=== PATIENT | male | born 1960 | race Caucasian/White ===

== ENCOUNTER 2017-04-07 09:03 | Observation (INO) ==
[2017-04-07] MEDS ORDERED: methylPREDNISolone 125 MG/2 ML VIAL IVP ONE (09:13)
[2017-04-07] MEDS ORDERED: Famotidine 20 MG/2 ML VIAL IVP ONE (09:14)
--- NOTE | 2017-04-07 09:17 | Emergency Department Note ---
Disposition Clinical Impression: Angioedema Qualifiers: Encounter type: initial encounter Qualified Code(s): T78.3XXA - Angioneurotic edema, initial encounter Disposition: Admitted As Inpatient Condition: Good Referrals: Nima Ross MD [Primary Care Provider] - Forms: ED Satisfaction Letter Time of Disposition: 10:08 General Adult HPI - General Chief complaint: ED Upper Respiratory Infection Stated complaint: Uvula Swollen Time Seen by Provider: 04/07/17 09:11 Source: patient Mode of arrival: ambulatory Limitations: no limitations Nursing Notes Reviewed: Yes Vital Signs Reviewed: Yes - History of Present Illness HPI Narrative: 56-year-old who states he woke up with a swollen uvula this morning. Patient states felt fine last PM. Patient is able to breathe without difficulty denies lip swelling or tongue swelling. Patient is on lisinopril. 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 Constitutional: Denies: fever, chills, weakness, weight change Eyes: Denies: eye pain, eye discharge, vision change ENT ED: Reports: throat pain, other (Swollen uvula). Denies: ear pain, dental pain, hearing loss, epistaxis, congestion, dysphagia Cardiovascular: Denies: chest pain, palpitations, dyspnea on exertion, edema, syncope Respiratory: Denies: cough, dyspnea, wheezes, hemoptysis, stridor Gastrointestinal: Denies: abdominal pain, nausea, vomiting, diarrhea, constipation, hematemesis, melena, hematochezia Genitourinary: Denies: urgency, dysuria, frequency, hematuria Musculoskeletal: Denies: back pain, neck pain, arthralgia, myalgia Integumentary: Denies: rash, abrasion, lesions Neurological: Denies: headache, weakness, numbness, paresthesias, confusion, abnormal gait, vertigo Psychiatric: Denies: anxiety, depression, suicidal thoughts, homicidal thoughts , auditory hallucinations, visual hallucinations Endocrine: Denies: fatigue Hematological/Lymphatic: Denies: easy bleeding, easy bruising Allergic/Immunologic: Denies: facial swelling, urticaria Past Medical History - Past Medical History Medical history: Reports: other Psychiatric history: Reports: no psych history - Social History Smoking Status: Never smoker Smokeless Tobacco Status: No Alcohol use: Reports: rarely Drug use: Reports: none Physical Exam - General Limitations: no limitations General appearance: alert, in no apparent distress - Head Head exam: atraumatic, normocephalic, normal inspection - Eye Eye exam: Present: normal appearance, PERRL, EOMI - ENT ENT exam: normal exam, normal oropharynx, mucous membranes moist - Neck Neck exam: Present: normal inspection, full ROM, trachea midline, other ( Edematous uvula otherwise airway appears patent) - Chest Chest inspection: Present: normal inspection, symmetric chest wall rise - Respiratory Respiratory exam: Present: normal lung sounds bilaterally - Cardiovascular Cardiovascular exam: Present: regular rate, normal rhythm, normal heart sounds - Abdominal Exam Abdominal exam: Present: soft, Non-Tender. Absent: tenderness, distention, guarding, rebound, rigidity - Extremities Exam Extremities exam: Present: normal inspection, full ROM. Absent: tenderness, pedal edema - Expanded Lower Extremity Exam Neurovascular/Tendon exam: Absent: motor deficit, sensory deficit, tendon deficit Gait: observed and normal - Back Exam Back exam: Present: normal inspection, full ROM. Absent: tenderness - Neurological Exam Neurological exam: Present: alert, oriented X3 - Psychiatric Psychiatric exam: Present: normal affect, normal mood - Skin Skin exam: Present: warm, dry, intact, normal color Course - Reevaluation(s) Reevaluation #1: States may have had some improvement. Time: 09:38 Reevaluation #2: Feels better although continues to have swelling of the uvula. Time: 10:01 - Consultations Consultation #1: Discussed with pharmacy I[facility]ib[facility], ecallantide are not available. Time: 09:39 Consultation #2: Discussed with Dr. Cervantes, admit if ENT is available. Time: 10:07 Consultation #3: Discussed with Dr. Salcedo, all see the patient in consult and will be available for any airway needs. Time: 10:16 Vital Signs Temperature 98.8 F 04/07/17 09:06 Pulse Rate 100 04/07/17 09:06 Respiratory Rate 16 04/07/17 09:06 Blood Pressure 149/94 04/07/17 09:06 O2 Sat by Pulse Oximetry 92 04/07/17 09:06 Temperature 98.8 F 04/07/17 09:06 Pulse Rate 100 04/07/17 09:06 Respiratory Rate 16 04/07/17 09:06 Blood Pressure 149/94 04/07/17 09:06 O2 Sat by Pulse Oximetry 92 04/07/17 09:06 Oxygen Delivery Oxygen Delivery Room Air
[2017-04-07] MEDS ORDERED: *HR* LORazepam 2 MG/ML VIAL IVP ONE (10:02)
[2017-04-07] MEDS ORDERED: Ondansetron 4 MG/2 ML VIAL IVP PRN (10:15)
[2017-04-07] MEDS ORDERED: Naloxone 0.4 MG/ML INJ IVP PRN (10:15)
[2017-04-07 10:31] LABS: Basophils # 0.1 K/mcL (0.0-0.2); Basophils % 0.9 %; Eosinophils # 0.2 K/mcL (0.0-0.6); Eosinophils % 3.3 %; Hematocrit 44.8 % (37.5-50.1); Hemoglobin 14.7 g/dL (12.9-16.9); Immature Granulocytes % 0.5 % (0-4); Lymphocytes # 1.5 K/mcL (0.6-4.6); Lymphocytes % 26.2 %; Mean Corpuscular HGB Conc 32.8 g/dL (31.6-35.5); Mean Corpuscular Hemoglobin 27.2 pg (28.0-33.3); Mean Platelet Volume 9.9 fL (9.4-12.4); Monocytes # 0.4 K/mcL (0.0-1.3); Monocytes % 6.9 %; Neutrophils # 3.6 K/mcL (1.6-8.9); Platelet Count 189 K/mcL (140-400); Red Cell Distribution Width 14.6 % (11.5-14.5); Segmented Neutrophils % 62.2 %
[2017-04-07 10:43] LABS: BUN/Creatinine Ratio 16 (6-26); Blood Urea Nitrogen 19 mg/dL (8-26); Calcium 9.5 mg/dL (8.6-10.8); Carbon Dioxide 25 mEq/L (19-29); Chloride 104 mEq/L (98-109); Glucose 124 mg/dL (70-99); Osmolality,Calculated 292 (280-300); Potassium 3.8 mEq/L (3.5-4.5); Sodium 139 mEq/L (136-145); eGFR For African Americans > 60 (> 60); eGFR For Non-African Americans > 60 (> 60)
[2017-04-07] MEDS ORDERED: SUMAtriptan succinate 50 MG TABLET PO PRN (10:45)
--- NOTE | 2017-04-07 10:51 | Internal Med History&Physical ---
Date of Encounter: 04/08/17 Time of Encounter: 10:49 Assessment and Plan (1) Angioedema Current visit: Yes Status: Suspected Acute uvulitis, presents with no URI type symptoms. Reports a mildly sore throat, No lip or tongue swelling, no tonsillomegaly, in no respiratory distress at this time. Per x-ray no airway occlusion. Hemodynamically stable and NSR. Patient has history of hypertension and has been on lisinopril greater than 10 years. I suspect Angioedema related to lisinopril use, but uvulitis due to GAS also in the differential. The patient is resting comfortably in no respiratory distress, sats 98% on room air with normal sinus rhythm Rapid strep A swab to rule out GAS Benadryl 25 mg IV push every 8 hours scheduled Famotidine 20 mg twice a day IV push Solu-Medrol 40 mg IV push every 6 hours Continuous telemetry, continuous SPO2 monitoring Respiratory support as needed Consult to ENT-called by ED physician Qualifiers: Encounter type: initial encounter Qualified Code(s): T78.3XXA - Angioneurotic edema, initial encounter (2) Uvulitis Current visit: Yes Status: Acute See plan above Internal Medicine - H&P: HPI Chief complaint: Uvulitis Admitted From: Home Plans for Post Hospital Care: Home History of present illness: Mr. Benoit is a 56 year old male presents to [facility] today for uvulitis. He states that he woke this morning with swollen uvula and a mild sore throat. Patient states that he felt fine last night before going to bed. The patient takes lisinopril for hypertension and has been on this medication for 10 years. CBC and CMP unremarkable no eosinophilia noted. He denies any tongue or lip swelling and is not in any rest or distress. Patient denies any fever, fatigue, swollen lymph nodes or flulike symptoms. Past Med Surg Social Fam HX - Past Medical History Medical history: other Psychiatric history: no psych history - Social History Smoking Status: Never smoker Smokeless Tobacco Status: No Alcohol use: rarely Drug use: none - Additional Family History Additional family history: Noncontributory Internal Medicine - H&P: Meds Benztropine [Cogentin] 1 mg PO HS 04/07/17 [History] BuPROPion SR (12 HR) [Wellbutrin SR] 150 mg PO DAILY 04/07/17 [History] Cholecalciferol (D-3) [Vitamin D] 5,000 unit PO DAILY 04/07/17 [History] Fenofibrate Nanocrystallized [Triglide] 160 mg PO DAILY 04/07/17 [History] Fluticasone Propionate Nasal [Flonase] 50 mcg NS BID 04/07/17 [History] Gabapentin [Neurontin] 300 mg PO HS 04/07/17 [History] Lisinopril/Hydrochlorothiazide [Zestoretic 10-12.5 mg Tablet] 1 tab PO DAILY 09/18 [History] [place]-3/Dha/Epa/Fish Oil [Fish Oil 1,000 mg Softgel] 1,000 mg PO BID 04/07/17 [ History] Omeprazole [PriLOSEC] 20 mg PO DAILY 04/07/17 [History] Perphenazine [Perphenazine] 16 mg PO HS 04/07/17 [History] SUMAtriptan Succinate [Imitrex] 100 mg PO AD PRN 04/07/17 [History] Tamsulosin [Flomax] 0.4 mg PO DAILY 04/07/17 [History] Venlafaxine [Effexor] 25 mg PO DAILY 04/07/17 [History] Vitamin E Acid Succinate [Vitamin E] 400 units PO DAILY 04/07/17 [History] 3 Allergy/AdvReac Type Severity Reaction Status Date / Time hydrochlorothiazide AdvReac Swelling Verified 04/07/17 10:39 [From Zestoretic] of Lip/Tongue/Throat lisinopril [From Zestoretic] AdvReac Swelling Verified 04/07/17 10:39 of Lip/Tongue/Throat All Systems PM: A 10-system review of systems was performed and is negative for pertinent findings except as documented above in the HPI. - Constitutional Constitutional: no chills, no fatigue, no fever(s), no lethargy, no night sweats , no weakness - EENT Eyes: no change in vision, no discharge, no pain, no photophobia Ears: no ear discharge, no ear pain, no tinnitus Nose, mouth and throat: dry mouth, sore throat (Mild), no bleeding gums, no change in voice, no dysphagia, no epistaxis, no hoarseness, no lip swelling, no mouth lesions, no mouth pain, no nasal congestion, no nasal discharge, no nasal obstruction, no neck mass, no neck pain, no nose pain, no post-nasal drip, no sinus pain, no sinus pressure, no throat swelling, no tongue swelling - Cardiovascular Cardiovascular ROS IM: no chest pain, no diaphoresis, no dyspnea, no edema, no lightheadedness, no palpitations, no syncope - Respiratory Respiratory: no cough, no dyspnea, no wheezing, no excessive phlegm production - Gastrointestinal Gastrointestinal: no abdominal pain, no diarrhea, no hematemesis, no hematochezia, no melena, no nausea, no vomiting - Musculoskeletal Musculoskeletal ROS IM: no numbness, no tingling - Integumentary Integumentary IM: no rash, no unusual bruising - Neurological Neurological ROS: no confusion, no convulsions, no focal weakness, no numbness, no tingling, no tremor(s) - Hematologic/Lymphatic Hematologic/Lymphatic: no easy bruising - Constitutional Vitals: Temp Pulse Resp BP Pulse Ox 98.8 F 92 16 150/97 96 04/07/17 09:06 04/07/17 10:34 04/07/17 10:34 04/07/17 10:34 04/07/17 10:34 General appearance: Present: cooperative, A&O X 3, no acute distress, answers questions appropriately - Head Head exam: Present: atraumatic, normocephalic - Eye Eye exam: Present: EOMI, PERRL, conjuntiva pink, sclera anicteric Pupils: Present: PERRL - ENT ENT exam: Present: mucous membranes dry - Expanded ENT Exam Mouth exam: Present: dry mucosa, tongue normal. Absent: drooling, muffled voice , tongue elevation, tongue hypertrophy Throat exam: Present: post pharyngeal erythema (Mild). Absent: post pharyngeal edema, tonsillar erythema, tonsillar exudate, tonsillomegaly - Neck Neck exam general surgery: Present: supple, trachea midline. Absent: lymphadenopathy - Respiratory Respiratory exam: Present: CTAB. Absent: accessory muscle use, rales, rhonchi, wheezes - Cardiovascular Cardiovascular exam: Present: RRR, +S1, +S2. Absent: diastolic murmur, gallop, rubs, systolic murmur - GI/Abdominal GI/Abdominal exam: Present: normal bowel sounds, soft, no peritoneal signs. Absent: distended, tenderness - Extremities Exam Extremities exam: Present: warm, radial pulses palpable and symmetrical. Absent : calf tenderness, cyanotic, pedal edema - Neurological Exam Neurological exam: Present: CN II-XII intact, oriented X3, no focal deficits. Absent: pronater drift, facial droop, speech deficit - Skin Skin exam: Present: dry, intact Internal Med - H&P Results - Labs CBC & Chem 7: 04/07/17 10:24 04/07/17 10:24 - Diagnostic Studies Other Images Status: image reviewed by me Additional comments: Soft tissue of the neck reveals prominent adenoids with patent airway
[2017-04-07] MEDS ORDERED: MethylPREDNISolone 40 MG/ML VIAL IVP SCH (12:00)
--- NOTE | 2017-04-07 12:13 | Event Note ---
Date of Encounter: 04/07/17 Time of Encounter: 12:12 Patient seen and examined with nurse practitioner. Angioedema likely induced by lisinopril. Advised the patient to discontinue lisinopril completely. Will give IV steroids H1, H2 blockers. ENT was consulted. For code
--- NOTE | 2017-04-07 12:22 | ENT - Consult Note ---
Date of Encounter: 04/07/17 Time of Encounter: 12:20 Assessment and Plan (1) Uvulitis Current Visit: Yes Status: Acute I had a nice discussion with the patient about the etiology of the solitary uvula swelling. I think it is likely given his presumed severe obstructive sleep apnea that his baseline uvula/soft palate complex is long and patulous on top of adult tonsil hyperplasia. That said I think it safest to assume that this an RADHA inhibitor related angioedema and therefore avoidance of this class of antihypertensives now and in the future seems prudent. Additional etiology of the swelling could include irritation from the high pressure BiPAP and/or early viral URI. I recommend either IV decadron 10mg q 8h for 3 doses or IV solumedrol 80-100mg q8h for 3doses. He can be discharged on a tapering course of prednisone such as 40mg x 3 days, then 20mg x 3 days then 10mg for 3 days. No lisinopril in the future and no BiPAP for tonight and tomorrow night. He may benefit from an ENT clinic consultation for the sleep apnea but I recommended he discuss this with his sleep physician first. History of Present Illness Consult date: 04/07/17 Reason for ENT Consult: other (uvula edema) History of present illness: 56 yo male woke up with a slightly scratchy throat this morning and a sense of swelling in the uvula region. He denies other viral URI symptoms. His medications include lisinopril and he also uses BiPAP nightly with a full face mask and high pressure setting. He received IV steroids in the ED and feels slightly better. He is easily drinking liquids at the bedside. There is no prior history of similar problem. Past Med Surg Social Fam HX - Past Medical History Medical history: other Psychiatric history: schizophrenia - Past Surgical History Surgical History: appendectomy - Social History Smoking Status: Never smoker Smokeless Tobacco Status: No Alcohol use: rarely Drug use: none - Family History Father Living Status: Still Living Hx Family Endocrine Disorder: Yes (diabetes) Medications and Allergies Benztropine [Cogentin] 1 mg PO HS 04/07/17 [History] BuPROPion SR (12 HR) [Wellbutrin SR] 150 mg PO DAILY 04/07/17 [History] Cholecalciferol (D-3) [Vitamin D] 5,000 unit PO DAILY 04/07/17 [History] Fenofibrate Nanocrystallized [Triglide] 160 mg PO DAILY 04/07/17 [History] Fluticasone Propionate Nasal [Flonase] 50 mcg NS BID 04/07/17 [History] Gabapentin [Neurontin] 300 mg PO HS 04/07/17 [History] Lisinopril/Hydrochlorothiazide [Zestoretic 10-12.5 mg Tablet] 1 tab PO DAILY 09/18 [History] [place]-3/Dha/Epa/Fish Oil [Fish Oil 1,000 mg Softgel] 1,000 mg PO BID 04/07/17 [ History] Omeprazole [PriLOSEC] 20 mg PO DAILY 04/07/17 [History] Perphenazine [Perphenazine] 16 mg PO HS 04/07/17 [History] SUMAtriptan Succinate [Imitrex] 100 mg PO AD PRN 04/07/17 [History] Tamsulosin [Flomax] 0.4 mg PO DAILY 04/07/17 [History] Venlafaxine [Effexor] 25 mg PO DAILY 04/07/17 [History] Vitamin E Acid Succinate [Vitamin E] 400 units PO DAILY 04/07/17 [History] 3 Allergy/AdvReac Type Severity Reaction Status Date / Time hydrochlorothiazide AdvReac Swelling Verified 04/07/17 10:39 [From Zestoretic] of Lip/Tongue/Throat lisinopril [From Zestoretic] AdvReac Swelling Verified 04/07/17 10:39 of Lip/Tongue/Throat ENT Exam Initial Vital Signs Temp Pulse Resp BP Pulse Ox 98.8 F 100 16 149/94 92 04/07/17 09:06 04/07/17 09:06 04/07/17 09:06 04/07/17 09:06 04/07/17 09:06 - General physical appearance well developed, well nourished, no distress, other (no respiratory distress, normal voice) - ENT normal nares, normal mucosa, no congestion, Other (oral cavity- no tongue edema , uvula is long and wide with a patulous palate and tonsils graded 2-3.) - Neck no masses, trachea midline, no lymphadectomy - Respiratory normal expansion, normal respiratory effort - Neurologic CN 2-12 grossly intact - Psychiatric oriented to time, oriented to person, oriented to place Exam Initial Vital Signs Temp Pulse Resp BP Pulse Ox 98.8 F 100 16 149/94 92 04/07/17 09:06 04/07/17 09:06 04/07/17 09:06 04/07/17 09:06 04/07/17 09:06 Results - Labs 04/07/17 10:24 04/07/17 10:24 Abnormal lab results MCH 27.2 pg (28.0-33.3) L 04/07/17 10:24 RDW 14.6 % (11.5-14.5) H 04/07/17 10:24 Glucose 124 mg/dL (70-99) H 04/07/17 10:24 All other labs normal. Consult Discharge Plan - Plan Referrals: Nima Ross MD [Primary Care Provider] -
[2017-04-07] MEDS: Famotidine 20 MG/2 ML VIAL IVP SCH (17:59)
[2017-04-07] MEDS: methylPREDNISolone 125 MG/2 ML VIAL IVP SCH (18:00)
[2017-04-07] MEDS: Fluticasone Propionate Nasal 50 MCG/SPRAY BOTTLE NS SCH (19:23)
[2017-04-07] MEDS ORDERED: Gabapentin 300 MG CAPSULE PO SCH (21:00)
[2017-04-07] MEDS ORDERED: Perphenazine 8 MG TABLET PO SCH (21:00)
[2017-04-08] MEDS: methylPREDNISolone 125 MG/2 ML VIAL IVP SCH ×3 (00:23→12:09)
[2017-04-08] MEDS: Famotidine 20 MG/2 ML VIAL IVP SCH (06:14)
[2017-04-08] MEDS ORDERED: Fenofibrate 54 MG TABLET PO SCH (09:00)
[2017-04-08] MEDS ORDERED: BuPROPion SR (12 HR) 150 MG TABLET PO SCH (09:00)
[2017-04-08] MEDS: Fluticasone Propionate Nasal 50 MCG/SPRAY BOTTLE NS SCH (09:29)
--- NOTE | 2017-04-08 11:24 | Discharge Summary ---
Date of Encounter: 04/08/17 Time of Encounter: 13:30 - Discharge Diagnosis (1) Sleep apnea Priority: Secondary Status: Acute Qualifiers: Sleep apnea type: unspecified type Qualified Code(s): G47.30 - Sleep apnea , unspecified (2) Angioedema Priority: Primary Status: Suspected Qualifiers: Encounter type: initial encounter Qualified Code(s): T78.3XXA - Angioneurotic edema, initial encounter (3) Uvular swelling Priority: Primary Status: Acute - Discharge Medications Prescriptions: Hydrochlorothiazide [Microzide] 12.5 mg PO DAILY #30 capsule predniSONE [PredniSONE] See Taper PO DAILY #13 tablet Home Medications: Benztropine [Cogentin] 1 mg PO HS 04/07/17 [History] BuPROPion SR (12 HR) [Wellbutrin SR] 150 mg PO DAILY 04/07/17 [History] Cholecalciferol (D-3) [Vitamin D] 5,000 unit PO DAILY 04/07/17 [History] Fenofibrate Nanocrystallized [Triglide] 160 mg PO DAILY 04/07/17 [History] Fluticasone Propionate Nasal [Flonase] 50 mcg NS BID 04/07/17 [History] [place]-3/Dha/Epa/Fish Oil [Fish Oil 1,000 mg Softgel] 1,000 mg PO BID 04/07/17 [ History] Omeprazole [PriLOSEC] 20 mg PO DAILY 04/07/17 [History] SUMAtriptan Succinate [Imitrex] 100 mg PO AD PRN 04/07/17 [History] Tamsulosin [Flomax] 0.4 mg PO DAILY 04/07/17 [History] Venlafaxine [Effexor] 25 mg PO DAILY 04/07/17 [History] Vitamin E Acid Succinate [Vitamin E] 400 units PO DAILY 04/07/17 [History] Hydrochlorothiazide [Microzide] 12.5 mg PO DAILY #30 capsule 04/08/17 [Rx] predniSONE [PredniSONE] See Taper PO DAILY #13 tablet 04/08/17 [Rx] Allergies/Adverse Reactions: 3 Allergy/AdvReac Type Severity Reaction Status Date / Time lisinopril [From Zestoretic] AdvReac Swelling Verified 04/07/17 10:39 of Lip/Tongue/Throat Date of admission: 04/07/17 10:34 Primary care physician: Nima Ross MD Discharging clinician: Deshaun Herzog Anticipated date of discharge: 04/08/17 - Patient Status Disposition: Home, Self-Care Condition: Good Functional capacity at discharge: independent ambulation Overall status at discharge: patient is not back to baseline - Discharge Instructions Instructions: Lisinopril (By mouth), Prednisone (By mouth), Angioedema (GEN) Follow Up With: Nima Ross MD [Primary Care Provider] - (follow up within 1-2 weeks ) - Diet and Activity Activity: resume usual activities as tolerated Diet: low fat, low cholesterol, low salt diet Hospital course: 56 yo male woke up with slightly scratchy throat and sense of swelling in the uvula region. Patient stated that over last 4 weeks he he had viral illness, patient denies any fever or chills. Patient denies any headache. Patient denies any neck stiffness, patient has significant uvula swelling. Patient was admitted for further evaluation. Will start patient on steroid 60 mg 3 times a day in addition to Benadryl. ENT was consulted. He recommended to discontinue RADHA inhibitor. Continue steroids for 3 doses then patient can be sent home on tapering dose of steroids. Patient to follow-up with ENT as an outpatient for further evaluation for sleep apnea. Discussed with patient about his medication, patient is taking , Lisinopril, gabapentin and Perphenazine. all three medication can cause angioedema . Discussed with patient about the risk and benefit. Patient stated the only medication he can stop his lisinopril. Discussed with him about rare complication of gabapentin and Perphenazine. Counseling him about continue current dose of steroid monitor if any recurrent symptom hold on gabapentin and Perphenazine and come to the emergency room. Patient understand the risk and benefit ,patient discharged home in stable condition . Discussed with patient also this could be secondary to viral illness as based on ENT physician differential diagnosis. Discussed with him about starting hydrochlorothiazide but discontinue lisinopril. Counseling about lifestyle modification weight loss - Time Spent with Patient Total time spent providing and/or coordinating discharge services: Greater than 30 minutes - Constitutional Vitals: Temp Pulse Resp BP Pulse Ox 98.0 F 73 18 123/73 95 04/08/17 06:56 04/08/17 06:56 04/08/17 06:56 04/08/17 06:56 04/08/17 06:56 General appearance: Present: cooperative, A&O X 3, no acute distress, answers questions appropriately - Head Head exam: Present: atraumatic, normocephalic - Eye Eye exam: Present: EOMI, conjuntiva pink, sclera anicteric - Neck Neck exam general surgery: Present: supple, trachea midline. Absent: lymphadenopathy - Respiratory Respiratory exam: Present: decreased breath sounds. Absent: accessory muscle use, rales, rhonchi, wheezes - Cardiovascular Cardiovascular exam: Present: RRR, +S1, +S2. Absent: diastolic murmur, gallop, rubs, systolic murmur - GI/Abdominal GI/Abdominal exam: Present: normal bowel sounds, soft, no peritoneal signs. Absent: distended, tenderness - Extremities Exam Extremities exam: Present: warm, radial pulses palpable and symmetrical. Absent : calf tenderness, cyanotic, pedal edema - Neurological Exam Neurological exam: Present: CN II-XII intact, oriented X3, no focal deficits, facial droop, speech deficit
[2017-04-08 11:36] VITALS: BP 128/74
[2017-04-08] MEDS ORDERED: predniSONE 20 MG TABLET PO SCH (11:45)
== END 2017-04-08 12:45 | disposition home or self-care (01) ==
LOC: EMEROO 09:03 → 3BNU 09:03
PROVIDERS: ADMIT Hospitalist; ATTEND Registered Nurse